=== PATIENT | female | born 1960 | race Hispanic/Latino ===

== ENCOUNTER → 2019-01-09 | Day surgery (SDC) | payer SELFPAY ==
[2019-01-08 12:54] LABS: BASOPHILS % 0.7 % (0.0-1.0); EOSINOPHILS # (AUTO) 0.1 (0.0-0.4); EOSINOPHILS % 1.3 % (0.0-6.0); HEMATOCRIT 41.2 % (34.2-44.1); HEMOGLOBIN 14.4 g/dL (12.0-16.0); LYMPHOCYTES # (AUTO) 1.8 (1.0-3.2); LYMPHOCYTES % 29.6 % (18.0-39.1); MEAN CORPUSCULAR HEMOGLOBIN 31.7 pg (28-32); MEAN CORPUSCULAR VOLUME 90.7 fL (81-99); MONOCYTES # (AUTO) 0.5 (0.2-0.8); MONOCYTES % 8.5 % (4.4-11.3); NEUTROPHILS # (AUTO) 3.6 (2.1-6.9); NEUTROPHILS % 59.2 % (38.7-80.0); PLATELET COUNT 230 x10e3/uL (140-360); RED BLOOD COUNT 4.54 x10e6/uL (3.6-5.1); RED CELL DISTRIBUTION WIDTH 12.7 % (11.7-14.4)
[2019-01-08 13:10] LABS: ANION GAP 14.5 mmol/L (8-16); BLOOD UREA NITROGEN 17 mg/dL (7-26); BUN/CREATININE RATIO 22 (6-25); CALCIUM 9.8 mg/dL (8.4-10.2); CARBON DIOXIDE 26 mmol/L (22-29); CHLORIDE 104 mmol/L (98-107); CREATININE, SERUM 0.79 mg/dL (0.57-1.11); EST GLOMERULAR FILTRATION RATE > 60 ML/MIN (60-); GLUCOSE 81 mg/dL (74-118); POTASSIUM 4.5 mmol/L (3.5-5.1); SODIUM 140 mmol/L (136-145)
[~2019-01-09] MED LIST: BUPIVACAINE 0.25%/EPI 30ML SDV INJ ONE; BUPIVACAINE/EPINEPHRINE 0.25% 10 ML SDV INJ ONE; CEPHALEXIN500 MG PO; DEXAMETHASONE SOD PHOS INJ 4 MG/ML VIAL ONE; FENTANYL CITRATE/PF 100MCG/2 ML INJ ONE; LIDOCAINE HCL 1% LOCAL INJ 20 ML VIAL ONE; LIDOCAINE HCL 2% LOCAL INJ 5 ML SDV VIAL INJ ONE; MIDAZOLAM HCL 2 MG/2 ML VIAL ONE; ONDANSETRON HCL INJ 2MG/ML 2ML 2 MG/ML VIAL ONE; PROPOFOL IV EMULSION 10 MG/ML 20 ML VIAL ONE; SEVOFLURANE INHAL SOLN 250 ML PEN BTL ONE
[2019-01-09 09:40] VITALS: BP 116/79
--- NOTE | 2019-01-09 13:49 | Operative Report ---
DATE OF PROCEDURE: 01/09/2019 SURGEON: Wilmer Montalvo MD PREOPERATIVE DIAGNOSIS: Lipoma of the back. POSTOPERATIVE DIAGNOSIS: Lipoma of the back. PROCEDURE PERFORMED: Removal of lipoma of the back. ANESTHESIA: General. ESTIMATED BLOOD LOSS: Minimal. DRAINS: None. COMPLICATIONS: None. INDICATION AND FINDINGS: The patient is a pleasant 58-year-old female, admitted for excision of lipoma of the back, which has been growing and becoming more painful. INTRAOPERATIVE FINDINGS: The patient had a 5 cm well-defined lipoma of the mid back located just to the right of the midline. DESCRIPTION OF PROCEDURE: With the patient lying on the operating table in the supine position after administration of general anesthesia, she was prepped and draped for excision of lipoma of the back. A transverse incision was made across the greater diameter of the lipoma and the incision was extended through the skin and subcutaneous tissue, bleeding points were cauterized, the lipoma which was well encapsulated was easily removed sharply as well as with blunt dissection, it was removed completely. Bleeding points cauterized. The wound irrigated. Then, the skin edges were infiltrated with 0.25% Marcaine with epinephrine and then the wound was closed in two layers using 2-0 Vicryl for the soft tissues and the skin was closed using 3-0 silk vertical mattress sutures. Sterile dressing was applied. The patient tolerated the procedure well and taken to the recovery room in stable condition. Wilmer Montalvo MD PJR/MODL /[id number]
== END | disposition home or self-care (01) ==
LOC: OR 05:16
PROVIDERS: ATTEND Surgery
DX: D17.1 Benign lipomatous neoplasm of skin and subcutaneous tissue of trunk (principal); I10 Essential (primary) hypertension; K28.9 Gastrojejunal ulcer, unspecified as acute or chronic, without hemorrhage or perforation; K21.9 Gastro-esophageal reflux disease without esophagitis; I83.90 Asymptomatic varicose veins of unspecified lower extremity; Z01.810 Encounter for preprocedural cardiovascular examination; Z01.812 Encounter for preprocedural laboratory examination
CPT/HCPCS: 11406; 12032; 36415; 80048; 85025; 88304; 93005; J1100; J2001 ×2; J2250; J2405; J2704; J3010